=== PATIENT | female | born 1970 | race Hispanic/Latino ===

== ENCOUNTER → 2016-05-08 | Outpatient (CLI) | payer SELFPAY | END | disposition home or self-care (01) | LOC: YCFC.O 14:21 | PROVIDERS: ATTEND Nurse Practitioner Family | DX: E11.9 Type 2 diabetes mellitus without complications (principal) ==

== ENCOUNTER → 2016-08-06 | Outpatient (CLI) | payer SELFPAY | END | disposition home or self-care (01) | LOC: YCFC.O 15:19 | PROVIDERS: ATTEND Nurse Practitioner Family | DX: E11.9 Type 2 diabetes mellitus without complications (principal) ==

== ENCOUNTER → 2017-06-25 | Outpatient (CLI) | payer OTHER | LOC: LAB.O 09:57 | PROVIDERS: ATTEND Nurse Practitioner Family | DX: E11.9 Type 2 diabetes mellitus without complications (principal); Z13.220 Encounter for screening for lipoid disorders ==

== ENCOUNTER → 2019-05-24 | Outpatient (CLI) | payer OTHER | LOC: YCFC.O 15:15 | PROVIDERS: ATTEND Family Medicine | DX: E11.65 Type 2 diabetes mellitus with hyperglycemia (principal) ==

== ENCOUNTER → 2019-06-09 | Outpatient (CLI) | payer OTHER ==
--- NOTE | 2019-06-09 09:45 | US ---
EXAM DESCRIPTION: Gall Bladder: ULTRASOUND. CLINICAL HISTORY: UPPER ABD PAIN COMPARISON: None. TECHNIQUE: Transabdominal scanning: Nichols-scale and Doppler modes. FINDINGS: Gallbladder: normal size, shape, echogenicity; no intraluminal stones or sludge. No fluid around the gallbladder. No wall thickening. 2.0 mm. tender with transducer pressure. Common bile duct: caliber 6.2 mm borderline dilated. Liver: Heterogeneously increased echogenicity; contour liver capsule smooth where seen. No fluid around the liver. Intrahepatic biliary ducts normal caliber. Doppler hepatopedal flow portal vein.. 9 mm. Long axis right lobe 14.9 cm. Pancreas: normal size Normal echogenicity. Duct not seen. Aorta: 2 cm normal caliber. Right kidney: long axis is 9.6 cm. Normal cortical thickness and echogenicity. No echogenic stones, no hydronephrosis, no perirenal fluid. IMPRESSION: 1., Gallbladder unremarkable by ultrasound appearance, but tender with transducer pressure. This could represent acalculus cholecystitis. Common bile duct borderline dilated. 2. Normal size of the liver with steatosis. Otherwise unremarkable. No ascites. Pancreas is negative. 3. Normal caliber of the aorta. Right kidney negative. Electronically signed by: Jesse Macdonald MD 06/09/2019 9:43 AM CDT
== END ==
LOC: YCFC.O 06-08 11:46
PROVIDERS: ATTEND Family Medicine
DX: K82.9 Disease of gallbladder, unspecified (principal); K76.0 Fatty (change of) liver, not elsewhere classified

== ENCOUNTER → 2020-04-14 | Outpatient (CLI) | payer SELFPAY | LOC: YCFC.O 12:35 | PROVIDERS: ATTEND Family Medicine | DX: I10 Essential (primary) hypertension (principal); R53.83 Other fatigue; E78.5 Hyperlipidemia, unspecified; E11.9 Type 2 diabetes mellitus without complications ==

== ENCOUNTER → 2020-04-24 | Outpatient (CLI) | payer BC ==
--- NOTE | 2020-04-25 09:58 | NM ---
EXAM DESCRIPTION: Hepatobiliar w/o CCK: Nuclear Medicine. CLINICAL HISTORY: RUQ pain COMPARISON: Gallbladder ultrasound June 09, 2019. TECHNIQUE: Patient was given 8.1 mCi of technetium 99 M mebrofenin (Choletec) radiopharmaceutical IV. Anterior gamma camera images were obtained of the right upper quadrant at 5 minute intervals for 1 hour . The patient was then given 1.7 mcg CCK IV infusion over 30-minute interval. Gallbladder ejection fraction was evaluated by measuring change in radioactivity in the gallbladder, over 30 min interval. FINDINGS: After administration of radiopharmaceutical, complete distribution of the radiopharmaceutical in the liver with no photopenic are sites of increased uptake. Almost immediate visualization of intrahepatic ducts. Timely visualization of the extrahepatic ducts and gallbladder and small intestine. After infusion of CCK began intravenously, abdominal pain was duplicated for 2 minutes. 2 minutes after infusion began, activity in the gallbladder decreased by 85%. Slightly more decrease in gallbladder activity to 88% at 20 minutes and 30 minutes after infusion began. IMPRESSION: 1. Radionuclide hepatobiliary imaging showing no evidence of intrahepatic or extrahepatic biliary obstruction. 2. Gallbladder ejection fraction is 88% at 30 minutes which is well within the normal range. Minimal duplication of abdominal pain at the beginning of the infusion. Electronically signed by: Jesse Macdonald MD 04/25/2020 9:57 AM [employer] [employer]
== END ==
LOC: NM 09:03
PROVIDERS: ATTEND Family Medicine
DX: R10.11 Right upper quadrant pain (principal)
CPT/HCPCS: 78226; A9537